=== PATIENT | male | born 1965 | race Caucasian/White ===

== ENCOUNTER 2019-10-26 23:28 | Emergency (ER) | payer OTHER ==
[~2019-10-26] VITALS: Ht 167.6 cm; Wt 84.0 kg
[2019-10-27 00:16] VITALS: BP 171/98
== END 2019-10-27 00:36 | disposition left against medical advice (07) ==
LOC: ER 23:28
DX: R52 Pain, unspecified (principal); Z53.21 Procedure and treatment not carried out due to patient leaving prior to being seen by health care provider